=== PATIENT | male | born 1990 | race Caucasian/White ===

== ENCOUNTER 2021-05-25 04:01 | Emergency (ER) | payer OTHER ==
[~2021-05-25] VITALS: Ht 175.3 cm; Wt 83.9 kg
[2021-05-25 04:07] VITALS: BP 127/77
--- NOTE | 2021-05-25 04:07 | NUR ---
30 Y/O MALE BIBA FOR ANXIETY. PT PRESENTS ANXIOUS AND DEPRESSED. PT STATES HE HAS BEEN "DEALING WITH SOME ISSUES," AND THAT HE HAS BEEN WANDERING THE STREETS. A/OX4; GCS-15; EVEN AND STEADY GAIT; DENIES N/V/D; UNLABORED BREATHING AND SPEAKING FULL SENTENCES. PT HAS NO COUGH, HEADACHE, SOB, OR CP AT THIS TIME. PT IS SEATED COMFORTABLY IN A CHAIR. ER MD MADE AWARE OF PT CONDITION. PT HAS CALM DEMEANOR. HX: ASTHMA NKA MED: ALBUTEROL AND ATIVAN
--- NOTE | 2021-05-25 04:07 | NUR ---
PT AMBULATED TO CHAIR-D
[2021-05-25] MEDS ORDERED: OLANZapine 5 MG ODT PO ONE (04:10)
--- NOTE | 2021-05-25 06:06 | NUR ---
PT NOW STATES THAT HE WANTS TO HURT HIMSELF BY CUTTING. NO DEFINITE PLAN, BUT HE REQUESTED THAT HE BE ON A HOLD FOR HIS SAFETY
--- NOTE | 2021-05-25 06:07 | NUR ---
TELEPSYCH CONSULT ORDERED
--- NOTE | 2021-05-25 06:25 | NUR ---
REMOVED ALL PT PERSONAL BELONGINGS. PT STRIPPED TO UNDERWEAR. CHECKED INSIDE UNDERWEAR FOR ANY HIDDEN ITEMS. PT PLACED IN A GOWN. ALL PERSONAL BELONGINGS GIVEN TO SECURITY.
--- NOTE | 2021-05-25 08:20 | NUR ---
DR Mccoy IS SPEAKING/EVALUTAING THE PT.
--- NOTE | 2021-05-25 08:46 | NUR ---
DR Mccoy RECOMENDED [facility] FOR THE PT AND STILL CONTINUE WITH HIS MEDICATION ZYPREXA 5MG.
--- NOTE | 2021-05-25 10:57 | NUR ---
CONTACTED MAYUR GOMEZ TO PLACE PATIENT ON [id number]
--- NOTE | 2021-05-25 11:20 | NUR ---
[place] [employer] BEDSIDE EVALUATING PT TO DETERMINE IF PT NEEDS TO BE PLACED ON HOLD
--- NOTE | 2021-05-25 11:53 | NUR ---
MAYUR GOMEZ PLACED PT ON HOLD, PAPERWORK IN THE CHART.
--- NOTE | 2021-05-25 12:15 | NUR ---
RHONA AND NOVAL SWAB DONE AND TAKEN TO THE LAB.
--- NOTE | 2021-05-25 12:20 | NUR ---
LAB AT BEDSIDE.
[2021-05-25 12:36] LABS: BASOPHILS # (AUTO) 0.1 K/uL (0.00-0.22); BASOPHILS % (AUTO) 1.1 % (0.0-2.0); EOSINOPHILS # (AUTO) 0.6 K/uL (0-0.4); EOSINOPHILS % (AUTO) 9.7 % (0.0-4.0); HEMATOCRIT 41.2 % (36-52); HEMOGLOBIN 14.3 g/dL (12.0-18.0); LYMPHOCYTES # (AUTO) 1.6 K/uL (2.0-11.5); LYMPHOCYTES % (AUTO) 26.4 % (20.5-51.1); MEAN CORPUSCULAR HEMOGLOBIN 31 pg (27-31); MEAN CORPUSCULAR HGB CONC 35 g/dL (33-37); MEAN CORPUSCULAR VOLUME 90.2 fL (80-94); MONOCYTES # (AUTO) 0.9 K/uL (0.8-1.0); MONOCYTES % (AUTO) 14.7 % (1.7-9.3); NEUTROPHILS # (AUTO) 2.8 K/uL (1.8-7.7); NEUTROPHILS % (AUTO) 48.1 % (42.2-75.2); PLATELET COUNT (AUTO) 345 K/uL (140-450); RED BLOOD CELL COUNT(AUTO) 4.57 MIL/uL (4.20-6.10); RED CELL DISTRIBUTION WIDTH 12.7 % (11.6-13.7); WHITE BLOOD COUNT (AUTO) 5.9 K/uL (4.8-10.8)
--- NOTE | 2021-05-25 12:54 | NUR ---
PT EATING LUNCH.
[2021-05-25 13:18] LABS: ALBUMIN 3.7 g/dL (3.4-5.0); ANION GAP 12.6 (8-16); CARBON DIOXIDE 25.5 mmol/L (21-32); CREATININE 0.9 mg/dL (0.6-1.3); POTASSIUM 4.1 mmol/L (3.5-5.1); TOTAL BILIRUBIN 0.2 mg/dL (0.0-1.0)
--- NOTE | 2021-05-25 18:56 | NUR ---
URINE COLLECTED AND TAKEN TO THE LAB.
--- NOTE | 2021-05-25 19:32 | NUR ---
received report from Drew SOMMERS for continuity of care
[2021-05-25 20:38] LABS: BARBITURATE, URINE NEGATIVE ng/ml (NEG <=200); BENZODIAZEPINE, URINE NEGATIVE ng/mL (NEG <=200); CANNABINOID, URINE NEGATIVE ng/mL (NEG <=50); COCAINE, URINE NEGATIVE ng/mL (NEG <=300); OPIATE, URINE NEGATIVE ng/mL (NEG <=2000); PHENCYCLIDINE SCREEN,URINE NEGATIVE ng/mL (NEG <=25)
--- NOTE | 2021-05-25 20:45 | NUR ---
provided patient food- ham sandwich, juice and apple sauce.
--- NOTE | 2021-05-26 01:51 | NUR ---
Patient appears to be resting comfortably in chair- semi fowlers with eyes closed.Respirations even and unlabored. No signs of distress noted. Patient in clear view of the nurses station. Patient quiet and cooperative when awake. Will continue to monitor patient.
--- NOTE | 2021-05-26 06:49 | NUR ---
Dr. Dominguez examining patient.
--- NOTE | 2021-05-26 07:22 | NUR ---
Pt report given to Maddy GUTIERREZ. Transfer of care at this time.
--- NOTE | 2021-05-26 07:23 | NUR ---
REPORT RECEIVED FROM MATT LOZANO FOR TRANSFER OF CARE
--- NOTE | 2021-05-26 08:20 | NUR ---
PT CURRENTLY EATING BREAKFAST TRAY BEDSIDE
--- NOTE | 2021-05-26 10:09 | NUR ---
Patient appears to be resting comfortably in bed. Vital Signs within normal limits. Respirations even and unlabored.
--- NOTE | 2021-05-26 12:00 | NUR ---
Pt resting with eyes closed, does not appear in distress. Arousable to voice.
--- NOTE | 2021-05-26 14:07 | NUR ---
Call center faxed packet to all following designated facilities Zeyad MORGAN [facility] At this time packet is under review , will follow up and notify ER when a placement is found .
--- NOTE | 2021-05-26 15:14 | NUR ---
MOVED TO ER BED 6
[2021-05-26] MEDS ORDERED: diphenhydrAMINE 50 MG CAP PO ONE (22:55)
[2021-05-26] MEDS ORDERED: ACETAMINOPHEN EXTRA STRENGTH 500 MG TAB PO ONE (23:35)
--- NOTE | 2021-05-27 00:47 | NUR ---
BUT IS NOW RESTING PT WAS HAVING TROUBLE SLEEPING EARLIER BUT IS NOW RESTING COMFORTABLY IN BED WITH RAILS UP X1 AND BED IN LOWEST SETTING.
--- NOTE | 2021-05-27 07:25 | NUR ---
GAVE TRANSFER OF CARE REPORT TO STEVEN GUTIERREZ
--- NOTE | 2021-05-27 07:25 | NUR ---
REPORT RECEVIED FROM YOSI GUTIERREZ FOR CONTINUITY OF CARE. PT IS A&OX4. ON ROOM AIR. SKIN INTACT, WARM AND DRY. WILL CONTINUE TO MONITOR.
--- NOTE | 2021-05-27 08:35 | NUR ---
Continuing to assist with placement. Aware of positive results. The only facility accepting + patient is [facility], however patient needs to be voluntary, not on a hold. If other facilities arise that are known to placing positive patients then we will keep the facility informed.
--- NOTE | 2021-05-27 10:28 | NUR ---
PT EATING BREAKFAST TRAY
--- NOTE | 2021-05-27 12:00 | NUR ---
PROVIDED PT WITH LUNCH TRAY
--- NOTE | 2021-05-27 13:24 | NUR ---
PT SPEAKING WITH TELEPSYCH AT THIS TIME
--- NOTE | 2021-05-27 15:20 | NUR ---
Patient has eyes closed, resting in bed. On room air. Vital Signs within normal limits. Respirations even and unlabored. Chest rise is symmetrical. Will continue to monitor.
--- NOTE | 2021-05-27 17:00 | NUR ---
Patient awake, resting in bed. On room air. Vital Signs within normal limits. Respirations even and unlabored. Chest rise is symmetrical. Will continue to monitor.
[2021-05-27 18:33] VITALS: BP 136/81
--- NOTE | 2021-05-27 18:33 | NUR ---
Patient discharged with v/s stable. Written and verbal after care instructions given FOR MAJOR DEPRESSIVE DISORDER and explained. Patient verbalized understanding. Ambulatory with steady gait. All questions addressed prior to discharge. Advised to follow up with PMD.
== END 2021-05-25 18:33 | disposition home or self-care (01) ==
LOC: MED 04:01
DX: R45.851 Suicidal ideations (principal); F41.9 Anxiety disorder, unspecified; Z20.822 Contact with and (suspected) exposure to COVID-19
CPT/HCPCS: 36415; 80053; 80305; 85025; 87426; 93005; 99285; U0003; Q0163